=== PATIENT | male | born 1970 | race Caucasian/White ===

== ENCOUNTER 2021-09-14 11:13 | Outpatient (CLI) | payer OTHER ==
[2021-09-14 19:46] LABS: SARS-CoV-2 PCR by NAA DETECTED (NotDetected)
== END 2021-09-14 11:14 | disposition home or self-care (01) ==
LOC: CSHLAB 11:13
PROVIDERS: ATTEND Chiropractor
DX: U07.1 COVID-19 (principal)
CPT/HCPCS: U0003; U0005